=== PATIENT | male | born 1985 | race Caucasian/White ===

== ENCOUNTER 2017-07-03 10:25 | Emergency (ER) | payer SELFPAY ==
[2017-07-03 10:26] VITALS: BP 165/98; PULSE 75; RESP 15; TEMP 98.2; O2SAT 98
[2017-07-03] MEDS ORDERED: KETOROLAC TROMETHAMINE 60 MG/2 ML (IM) VIAL IM ONE (10:45)
[2017-07-03] MEDS ORDERED: CYCLOBENZAPRINE HCL 10 MG TAB PO ONE (10:45)
--- NOTE | 2017-07-03 10:47 | PD ---
HPI Chief Complaint: Back/ Neck Pain or Injury Time Seen by Provider: 10:39 Travel History International Travel<30 days: No Contact w/Intl Traveler<30days: No Traveled to known affect area: No History of Present Illness HPI 31-year-old male here for evaluation of neck pain. The patient was drinking alcohol and states he was folded into a fold up couch 2 days ago, injuring his neck. He states he was out in the ocean swimming yesterday, further injuring his neck. When he woke up this morning he noticed severe pain in his midline lower neck. He denies paresthesias or motor deficits. No fevers or chills. No history of IVDU. Pain is moderate to severe, constant, worse with movement and palpation. PFSH Social History Alcohol Use: Yes Tobacco Use: No Allergies-Medications (Allergen,Severity, Reaction): Coded Allergies: No Known Allergies (Unverified , 07/03/17) Reported Meds & Prescriptions Reported Meds & Active Scripts Active Flexeril (Cyclobenzaprine HCl) 10 Mg Tab 10 Mg PO TID Lortab (Hydrocodone-Acetaminophen) 5-325 Mg Tab 1 Tab PO Q6H PRN Review of Systems Except as stated in HPI: all other systems reviewed are Neg Physical Exam Narrative GENERAL: Well-developed, well-nourished, awake, alert, GCS 15, no apparent distress. SKIN: Focused skin assessment warm/dry. No lacerations, abrasions, or ecchymosis. HEAD: Atraumatic. Normocephalic. EYES: Pupils equal and round. No scleral icterus. No injection or drainage. ENT: Mucous membranes pink and moist. NECK: Trachea midline. No JVD. Moderate midline lower cervical spine tenderness without step-off. Patient has difficulty turning his head to the right and left secondary to pain. MUSCULOSKELETAL: No obvious deformities. No clubbing. No cyanosis. No edema. No midline thoracic or lumbar spine step-off or tenderness. NEUROLOGICAL: Awake and alert. No obvious cranial nerve deficits. Motor grossly within normal limits. Normal speech. Normal muscle strength in bilateral upper and lower extremities with normal sensation. PSYCHIATRIC: Appropriate mood and affect; insight and judgment normal. Data Data Last Documented VS Vital Signs Date Time Temp Pulse Resp B/P (MAP) Pulse Ox O2 Delivery O2 Flow Rate FiO2 07/03/17 12:24 07/03/17 12:23 16 07/03/17 10:26 98.2 75 98 Orders Orders ^ [place] Collar (07/03/17 10:44) Ketorolac Inj (Toradol Inj) (07/03/17 10:45) Cyclobenzaprine (Flexeril) (07/03/17 10:45) Ct Cerv Spine W/O Contrast (07/03/17 ) MDM Medical Decision Making Medical Screen Exam Complete: Yes Emergency Medical Condition: Yes Differential Diagnosis Cervical spine vertebral injury, cervical strain, myelitis/discitis/epidural abscess unlikely, meningitis unlikely Narrative Course Vital signs show heart rate 75, blood pressure 165/98, pulse ox 98% on room air , oral temp of 98.2F. CT cervical spine: Small disc protrusion at C5 to 6, age indeterminant. No evidence of acute fracture or subluxation. Patient was made aware of the CT findings and was provided a copy of the report. He was given IM Toradol and oral Flexeril with improvement in pain and range of motion in his neck. He has no fevers. I do not suspect an infectious etiology for his pain such as osteomyelitis/discitis/meningitis/epidural abscess. He has no motor weakness or paresthesias on exam. This is a cervical strain. I will give him a prescription for muscle relaxant and pain medication. He was informed not to drink alcohol or operate heavy machinery while taking these medications and was informed of the risks of doing so. PMD follow-up this week. He was informed on when to return to the emergency department. He verbalizes understanding and agreement with plan. Diagnosis Primary Impression: Cervical strain Qualified Codes: S16.1XXA - Strain of muscle, fascia and tendon at neck level , initial encounter Referrals: [facility] 1 week Primary Care Physician 1 week Additional Instructions: Follow-up with a primary care physician this week. Return to the emergency department for worsening symptoms or any other concerns. Scripts Cyclobenzaprine (Flexeril) 10 Mg Tab 10 MG PO TID for Muscle Spasm, #12 TAB 0 Refills Prov: Esteban De Luna MD 07/03/17 Hydrocodone-Acetaminophen (Lortab) 5-325 Mg Tab 1 TAB PO Q6H Y for PAIN, #10 TAB 0 Refills Prov: Esteban De Luna MD 07/03/17 Disposition: 01 DISCHARGE HOME Condition: Stable Esteban De Luna MD Jul 03, 2017 10:47
--- NOTE | 2017-07-03 12:10 | RADRPT ---
EXAM DATE/TIME: 07/03/2017 11:37 [facility] COMPARISON: No previous studies available for comparison. INDICATIONS : Injury with neck pain. RADIATION DOSE: 22.16 CTDIvol (mGy) MEDICAL HISTORY : None SURGICAL HISTORY : None. ENCOUNTER: Initial ACUITY: 2 days PAIN SCALE: 6/10 LOCATION: Bilateral neck TECHNIQUE: Volumetric scanning of the cervical spine was performed. Multiplanar reconstructions in the sagittal, coronal and oblique axial planes were performed. Using automated exposure control and adjustment o f the mA and/or kV according to patient size, radiation dose was kept as low as reasonably achievable to obtain optimal diagnostic quality images. DICOM format image data is available electronically f or review and comparison. FINDINGS: VERTEBRAE: Normal vertebral body height. Minimal disc space narrowing at C5-6. ALIGNMENT: No evidence of subluxation. C2-C3: The bony spinal canal is normal in size. No evidence of disc bulge or herniation. The neural forami na are bilaterally patent. C3-C4: The bony spinal canal is normal in size. No evidence of disc bulge or herniation. The neural forami na are bilaterally patent. C4-C5: The bony spinal canal is normal in size. No evidence of disc bulge or herniation. The neural forami na are bilaterally patent. C5-C6: The bony spinal canal is normal in size. Mild central disc protrusion, age indeterminate. The neural foramina are bilaterally patent. C6-C7: The bony spinal canal is normal in size. No evidence of disc bulge or herniation. The neural forami na are bilaterally patent. C7-T1: The bony spinal canal is normal in size. No evidence of disc bulge or herniation. The neural forami na are bilaterally patent. CONCLUSION: Small disc protrusion at C5-6, age indeterminate. No evidence of acute fracture or subluxation. Hubert Jacob MD on July 03, 2017 at 12:07 Board Certified Radiologist. This report was verified electronically.
[2017-07-03] MEDS ORDERED: CYCL1TAB29 PO (12:22)
[2017-07-03] MEDS ORDERED: HYDR-3533 PO (12:22)
[2017-07-03 12:23] VITALS: RESP 16
== END 2017-07-03 12:27 | disposition home or self-care (01) ==
LOC: NEPD 10:25
DX: S16.1XXA Strain of muscle, fascia and tendon at neck level, initial encounter (principal); X58.XXXA Exposure to other specified factors, initial encounter
CPT/HCPCS: 72125; 96372; 99284; J1885